=== PATIENT | male | born 1960 | race Hispanic/Latino ===

== ENCOUNTER 2017-06-24 15:47 | Observation (INO) | payer OTHER ==
[~2017-06-24] VITALS: Ht 172.7 cm; Wt 63.5 kg
[2017-06-24] VITALS (10 sets, daily range): BP systolic 109–139; BP diastolic 61–82
--- NOTE | 2017-06-24 03:22 | Pre Op History & Physical ---
ADDENDUM TO PREOPERATIVE HISTORY AND PHYSICAL This gentleman has a right supraglottic mass. He was scheduled for endoscopy and biopsy about 2 weeks ago. The patient came for preop but postponed his surgery against medical advice. The patient is having a similar procedure for panendoscopy, microlaryngoscopy, biopsy and possible tracheostomy. The risks and benefit have been explained to the patient as before. His medical condition has not changed except the only difference is that it is 2 weeks further along with his tumor. Job#: [id number]
--- NOTE | 2017-06-24 03:24 | Pre Op History & Physical ---
DATE OF SURGERY: June 24, 2017 CHIEF COMPLAINT: Right supraglottic mass and hoarseness. HISTORY OF PRESENT ILLNESS: This 57 years old male has right-sided throat pain for about 3 months. The patient claimed that the pain is constant. He lost about 10 pounds over the past 3 months. He denies any dysphagia, odynophagia, or shortness of breath. The patient has hoarseness. The patient smokes about half pack a day and is a nondrinker. A CT scan of the neck showed that patient has a 4 cm ill-defined right supraglottic mass, highly suspicious for squamous cell carcinoma. REVIEW OF SYSTEMS: No recent cardiovascular, respiratory, or GI problem. PAST MEDICAL HISTORY: Patient has no significant medical problem. PAST SURGICAL HISTORY: The patient has no previous surgery. ALLERGIES: HE HAS NO KNOWN ALLERGY TO MEDICATION. MEDICATIONS: He is on Soma and hydrocodone for his back problem. SOCIAL HISTORY: He smokes half a pack a day, is a nondrinker. FAMILY HISTORY: Noncontributory. PHYSICAL EXAMINATION VITAL SIGNS: Patient's vital signs were within normal limits. EARS: Exam shows normal tympanic membranes bilaterally. NASAL: Exam shows diminished nasal septum on the right side about 40%. THROAT: Oropharynx and oral cavity show 2+ tonsils bilaterally with Mallampati level 2. Nasal endoscopy showed that patient has right AE fold mass blocking the right side. The right vocal fold was not mobile, the left vocal fold was mobile. NECK: No lymph node or thyroid palpable. CHEST: Good air entry bilaterally. CARDIOVASCULAR: S1, S2. No murmur noted. IMPRESSION: Mr. Elizabeth has a right supraglottic mass with immobile vocal fold, most likely malignancy. The suggested treatment is panendoscopy, biopsy, possible tracheostomy, and other necessary procedure. The complication of procedure includes, but not limited to bleeding, infection, perforation of esophagus, pneumomediastinum, mediastinitis, airway compromise, and persistent recurrence of the problem. The alternative would be continued observation, continued antibiotic therapy, topical nasal steroid therapy, systemic steroid therapy, and repeat flexible laryngoscopic exam and biopsy in the office setting. The patient has elected to undergo the surgical procedure. Job#: [id number] [facility]
[~2017-06-24 15:47] MED LIST: DEXAMETHASONE SOD PHOS 10 MG/1 ML VIAL ONE; HYDROCODON-ACE1 EAC9 PO; LIDOCAINE 1% W/EPINEPHRINE 20 ML VIAL ONE; MORPHINE SULFATE 2 MG/ML SYR ONE; OXYMETAZOLINE HCL 0.05% NAS 1 SPRAY BTL ONE; SOMA350 MG PO
[2017-06-24] MEDS ORDERED: PROMETHAZINE 25MG/SOD CHL 0.9% 50 ML IV PRN (16:15)
--- NOTE | 2017-06-24 16:20 | Operative Report ---
DATE OF PROCEDURE: June 24, 2017 CHIEF COMPLAINT: Right supraglottic mass. POSTOPERATIVE DIAGNOSIS: Right supraglottic mass. OPERATIVE PROCEDURES: Direct laryngoscopy, rigid esophagoscopy, rigid bronchoscopy, microlaryngoscopy, biopsy of the right tongue base, biopsy of right supraglottic mass, and tracheostomy. ANESTHESIA: Dr. Overton. INDICATIONS: This 56-year-old male has history of a sore throat for a number of months. On examination in the office, the patient was noted to have a supraglottic mass. The patient is a smoker and drinker. CT scan of the neck showed the patient has a 4-cm supraglottic mass. It was decided that panendoscopy, microlaryngoscopy, biopsy, possible tracheostomy and other necessary procedures would be beneficial for him. Patient was taken to the operating room and put under general anesthesia. Intubation was difficult because of the large size of the mass and the airway was deemed compromised, even though the intubation was successful. It was worried that when the patient was extubated he might have a problem. Because of the potential of airway problem, tracheostomy proceeded prior to the panendoscopy and biopsy. The tracheostomy was performed. An incision was marked out about 2 fingerbreadths from the sternal notch. The area was injected with 1% Xylocaine with 1:100,000 epinephrine for hemostasis. Dissection was carried down to the subplatysmal plane. A superior and inferior flap was elevated. Strap muscle was identified, and this was . The cricoid was identified, and this was retracted superiorly. The 3rd tracheal ring was identified. The thyroid gland was noted to be superior to the 3rd tracheal ring. The 3rd tracheal ring was resected. The tracheostomy site was dilated with the tracheal dilator. A size 8 tracheostomy tube was inserted without any problem. A Shiley tracheostomy tube was used. The airway circuit was hooked up to the tracheostomy. The platysma flap was advanced in the midline and closed using 3-0 silk suture in interrupted fashion. The tracheostomy tube was sutured in place in all 4 quadrants. A tracheal tie was applied. Panendoscopy was done. The patient was repositioned. The esophagoscopy was performed. Esophagoscope was passed through the cricopharyngeus muscle. Esophagus was examined to about 25 cm from the incisor. No abnormality was noted. The esophagoscope was retrieved. The rigid bronchoscopy was performed. A size 4 bronchoscope with Mccarthy true was used. The bronchoscope was passed with difficulty through the mass into the larynx. The true vocal fold on the left side was normal. The right side was blocked by the tumor. No obvious subglottic lesion was noted. No lesion was noted in the trachea. The direct laryngoscopy was performed. Using the Ade laryngoscope, the oropharynx and oral cavity were examined. No abnormality was noted. Increased lymphoid tissue was noted in the right tongue base. The right tongue base was biopsied and sent for permanent section. The larynx was examined. A large supraglottic mass was noted endolaryngeal on the right side. This was biopsied using the cup forceps. Microscope was brought in place. Because of the large size of the mass, the vocal folds were not able to be identified clearly. The lesion in the frozen section was done on the supraglottic mass. It was returned as squamous cell carcinoma. The patient tolerated the above procedure with minimal blood loss. He was given 1 gram of Ancef intraoperatively and 20 mg of Decadron. Patient was transferred to the recovery room in stable condition. Job#: [id number]
[2017-06-24] MEDS ORDERED: HYDROMORPHONE 1MG/1ML INJ IV PRN (16:30)
[2017-06-24] MEDS ORDERED: SEVOFLURANE INHAL SOLN 250 ML PEN BTL ONE (17:28)
[2017-06-24] MEDS ORDERED: ROCURONIUM BROMIDE 10 MG/ML 5ML VIAL ONE (17:28)
[2017-06-24] MEDS ORDERED: PROPOFOL IV EMULSION 10 MG/ML 20 ML VIAL ONE (17:28)
[2017-06-24] MEDS ORDERED: SUCCINYLCHOLINE 200 MG/10 ML SYR ONE (17:28)
[2017-06-24] MEDS ORDERED: KETOROLAC TROMETHAMINE 30 MG/ML VIAL ONE (17:28)
[2017-06-24] MEDS ORDERED: ACETAMINOPHEN 1000 MG/100 ML IV ONE (17:28)
[2017-06-24] MEDS ORDERED: DEXAMETHASONE SOD PHOS INJ 4 MG/ML VIAL ONE (17:28)
[2017-06-24] MEDS ORDERED: CEFAZOLIN SOD 1 GM VIAL ONE (17:28)
[2017-06-24] MEDS ORDERED: LIDOCAINE HCL 2% LOCAL INJ 5 ML SDV VIAL INJ ONE (17:28)
[2017-06-24] MEDS ORDERED: ONDANSETRON HCL INJ 2 MG/ML VIAL ONE (17:28)
[2017-06-24] MEDS ORDERED: MIDAZOLAM HCL 2 MG/2 ML VIAL ONE (17:38)
[2017-06-24] MEDS ORDERED: FENTANYL CITRATE/PF 100MCG/2 ML INJ ONE (17:38)
[2017-06-24] MEDS: HYDROMORPHONE 1MG/1ML INJ IV PRN ×2 (18:25→22:07)
[2017-06-24] MEDS: ACETAMINOPHEN/CODEINE 300MG - 30MG TAB PO PRN (20:00)
--- NOTE | 2017-06-24 21:53 | Consultation ---
DATE OF CONSULTATION: June 24, 2017 PULMONARY AND CRITICAL CARE CONSULT REFERRING PHYSICIAN: Dr. Ajit Sosa REASON FOR REFERRAL: Postoperative state, ENT surgery. Mr. Elizabeth is a pleasant 56-year-old gentleman with postoperative state. Patient has been having right-sided throat pain for about 3 months. Pain has been constant. He lost about 10 lbs over that timeframe. Patient is having hoarseness as well. He smokes, but he quit drinking a long time ago. Outside CAT scan showed a 4-cm ill-defined right supraglottic mass. He elects for surgery. During surgery, it was noted that intubation was slightly difficult, so tracheostomy was placed. However, tracheostomy was without difficulty. Patient has repeat bronchoscopy performed. There was some difficulty going past the mass into the larynx. A true vocal fold on the left was normal. However, the right side was blocked by the tumor. No obvious subglottic lesion was noted. No lesion was noted in the trachea. There was some increased lymphoid tissue at the right tongue base. Biopsies were performed. Preliminary frozen section shows squamous cell carcinoma. Minimal blood loss resulted. He was sent to the ICU for further care. PAST MEDICAL HISTORY: None. MEDICATIONS: Patient is on outpatient Soma and [place] 10 and 225 mg among medications. ALLERGIES: NO KNOWN DRUG ALLERGIES. SOCIAL HISTORY: No drugs, no drinking. Patient smokes 1 pack a day. 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 Patient has family around. FAMILY HISTORY: Noncontributory. REVIEW OF SYSTEMS: Cannot get as he is not talking due to new tracheostomy. OBJECTIVE VITALS: Afebrile. Vital signs noted per electronic record. GENERAL: No acute distress. Alert and calm in bed now. HEENT: Normocephalic, atraumatic. NECK: Supple. Tracheostomy in place. Mild oozing from inside trach tube it appears. Mostly with good hemostasis. PULMONARY: Bilateral air entry is good. Limited but clear. CARDIOVASCULAR: S1/S2. No murmurs, rubs or gallops. ABDOMEN: Soft, nontender. EXTREMITIES: No clubbing, no cyanosis, no edema. INTEGUMENT: No rash or purpura. LABS: Outside labs were reviewed. Albumin was 4.0. Creatinine was normal. IMPRESSIONS AND PLAN 1. Postoperative state, status post tracheostomy. 2. Postoperative state, status post biopsies of right tongue base and right supraglottic mass. 3. Supraglottic mass, frozen section squamous cell carcinoma. 4. Active smoker. 5. Chronic pain due to back problems. Patient will have close followup in the ICU after procedure. Continue local tracheostomy care. Follow up for bleeding. Speech therapy evaluation for dysphagia and dysphonia in the morning. Follow up on the biopsy report. Patient expected for future radiation chemotherapy most likely, but this can be arranged with Dr. Sosa. I would like to thank Dr. Sosa for the opportunity to participate in the care of Mr. Elizabeth. Please do not hesitate to contact me if I can help you in anyway. Job#: [id number] CQ
[2017-06-24] MEDS: CEFAZOLIN SOD 1 GM VIAL IV SCH (22:06)
[2017-06-24] MEDS: LACTATED RINGER'S 1,000 ML INJ SCH (22:06)
[2017-06-24] MEDS: ONDANSETRON HCL INJ 2 MG/ML VIAL IV PRN (23:59)
[2017-06-25] VITALS (25 sets, daily range): BP systolic 103–135; BP diastolic 64–97
[2017-06-25] MEDS: HYDROMORPHONE 1MG/1ML INJ IV PRN ×3 (02:01→19:33)
[2017-06-25] MEDS: ACETAMINOPHEN/CODEINE 300MG - 30MG TAB PO PRN ×6 (04:00→21:22)
[2017-06-25] MEDS: ONDANSETRON HCL INJ 2 MG/ML VIAL IV PRN ×2 (05:54→19:33)
[2017-06-25 06:01] LABS: BASOPHILS % 0.3 % (0.0-1.0); EOSINOPHILS # (AUTO) 0.1 (0.0-0.4); EOSINOPHILS % 0.9 % (0.0-6.0); HEMOGLOBIN 12.5 g/dL (14.0-18.0); LYMPHOCYTES # (AUTO) 1.7 (1.0-3.2); LYMPHOCYTES % 22.2 % (18.0-39.1); MEAN CORPUSCULAR HEMOGLOBIN 28.6 pg (28-32); MEAN CORPUSCULAR HGB CONC 32.9 g/dL (31-35); MONOCYTES # (AUTO) 0.7 (0.2-0.8); MONOCYTES % 8.4 % (4.4-11.3); NEUTROPHILS # (AUTO) 5.3 (2.1-6.9); NEUTROPHILS % 67.9 % (38.7-80.0); PLATELET COUNT 182 x10e3/uL (140-360); RED BLOOD COUNT 4.37 x10e6/uL (4.3-5.7); RED CELL DISTRIBUTION WIDTH 12.4 % (11.7-14.4)
[2017-06-25 06:22] LABS: ALANINE AMINOTRANSFERASE 9 IU/L (0-55); ALKALINE PHOSPHATASE 79 IU/L (40-150); ANION GAP 12.2 mmol/L (8-16); BLOOD UREA NITROGEN 10 mg/dL (7-26); BUN/CREATININE RATIO 14 (6-25); CALCIUM 8.6 mg/dL (8.4-10.2); CARBON DIOXIDE 26 mmol/L (22-29); CHLORIDE 103 mmol/L (98-107); CREATININE, SERUM 0.71 mg/dL (0.72-1.25); EST GLOMERULAR FILTRATION RATE > 60 ML/MIN (60-); GLUCOSE 102 mg/dL (74-118); POTASSIUM 4.2 mmol/L (3.5-5.1); SODIUM 137 mmol/L (136-145)
[2017-06-25] MEDS: CEFAZOLIN SOD 1 GM VIAL IV SCH (08:35)
[2017-06-25] MEDS: NICOTINE 21 MG/EA PATCH TOP SCH (08:35)
--- NOTE | 2017-06-25 12:59 | Progress Note ---
DATE: June 25, 2017 PULMONARY MEDICINE PROGRESS NOTE SUBJECTIVE: Mr. Elizabeth was seen and examined at bedside. He continues to do well. Blood oozing from around the trach has decreased over the last day. The patient is grossly able to eat as per the nurse who is assisting with giving him medicines and small amounts of feeds. The patient is without any complication overnight. He still has not walked yet. REVIEW OF SYSTEMS: No ability to get reliably as he is not talking. OBJECTIVE VITALS: Afebrile. Vital signs noted per electronic record. GENERAL: No acute distress. Alert and calm in bed. Tracheostomy in place, some blood around. HEENT: Normocephalic, atraumatic. NECK: Supple. Throat midline. Tracheostomy in place. CARDIOVASCULAR: S1 and S2. No murmurs, rubs or gallops. PULMONARY: Good air entry, clear. ABDOMEN: Soft, nontender. EXTREMITIES: No clubbing, no cyanosis, no edema. INTEGUMENT: No rash. No purpura. LABS: 4.2 potassium, 10 BUN 0.7 creatinine, 7.7 white count, 38 hematocrit, 182 platelets. IMPRESSION AND PLAN 1. Postoperative state, status post tracheostomy. 2. Paraglottic and supraglottic mass, preliminary results consistent with squamous cell carcinoma. 3. Active smoker. 4. Dysphonia. Continue current therapy at this time. The patient will be allowed to go home. Will request suction equipment and maintenance of tracheostomy equipment for home use. The patient had clearance for home health evaluation. Additionally, speech therapy can be done there. Continue escalation of diet. The patient will need adjusted and modified diet with the tracheostomy in place. Possible and likely discharge today. Follow up the blood output, but it is going down well. Job#: [id number]
--- NOTE | 2017-06-25 15:04 | Progress Note ---
DATE: June 25, 2017 This 56-year-old gentleman underwent panendoscopy, microlaryngoscopy and biopsy along with tracheostomy because of potential airway compromise yesterday. The patient was admitted to the ICU for observation. He has had an uneventful postoperative course. The patient has no problem at this point. The patient does complain of still having soreness in his throat. He has not been coughing up blood. There is no active blood come out from the trach site. The patient was seen by Dr. Brady yesterday for his medical management. The speech pathologist did not have a chance to see the patient yet in order to provide him with trach teaching. On examination, the patient is in no apparent distress. The patient was seen with his care nurse. The patient has been eating. No abnormalities of the oropharynx or oral cavity. The trach site is clean. The patient's tracheostomy cuff has been deflated. I attempted to teach him how to talk with covering the trach. The patient is not very successful at this point. His airway seems to be blocked when the trach lumen was covered. The patient's condition was discussed with him regarding the surgery and regarding the positive diagnosis of the biopsy. The plan has been discussed with the patient regarding treatment options. He will come back to my office in about 2 days, and we will discuss the treatment options. The patient's diet is doing well. He will continue to advance his diet. He has no aspiration when he eats. The patient is still waiting at the time of being seen this morning at about 7:30 for the speech pathologist for trach teaching. After that, the patient can be discharged home. I have also instructed the speech pathologist to give the patient a Shiley tracheostomy tube #8 to go home with. The patient will be followed in my office in 2 days' time. Job#: [id number]
[2017-06-25] MEDS: LACTATED RINGER'S 1,000 ML INJ SCH (21:49)
[2017-06-26] VITALS (8 sets, daily range): BP systolic 113–142; BP diastolic 60–79
[2017-06-26] MEDS: ACETAMINOPHEN/CODEINE 300MG - 30MG TAB PO PRN ×4 (02:35→19:29)
[2017-06-26 06:58] LABS: BASOPHILS % 0.2 % (0.0-1.0); EOSINOPHILS # (AUTO) 0.1 (0.0-0.4); HEMATOCRIT 37.8 % (38.2-49.6); HEMOGLOBIN 12.7 g/dL (14.0-18.0); LYMPHOCYTES # (AUTO) 1.1 (1.0-3.2); LYMPHOCYTES % 10.6 % (18.0-39.1); MEAN CORPUSCULAR HEMOGLOBIN 28.8 pg (28-32); MEAN CORPUSCULAR HGB CONC 33.6 g/dL (31-35); MEAN CORPUSCULAR VOLUME 85.7 fL (81-99); MONOCYTES # (AUTO) 0.6 (0.2-0.8); MONOCYTES % 6.1 % (4.4-11.3); NEUTROPHILS # (AUTO) 8.1 (2.1-6.9); NEUTROPHILS % 81.8 % (38.7-80.0); PLATELET COUNT 186 x10e3/uL (140-360); RED BLOOD COUNT 4.41 x10e6/uL (4.3-5.7); RED CELL DISTRIBUTION WIDTH 11.9 % (11.7-14.4)
[2017-06-26 07:21] LABS: BLOOD UREA NITROGEN 13 mg/dL (7-26); BUN/CREATININE RATIO 18 (6-25); CALCIUM 8.6 mg/dL (8.4-10.2); CARBON DIOXIDE 25 mmol/L (22-29); CHLORIDE 100 mmol/L (98-107); CREATININE, SERUM 0.74 mg/dL (0.72-1.25); EST GLOMERULAR FILTRATION RATE > 60 ML/MIN (60-); GLUCOSE 74 mg/dL (74-118); SODIUM 135 mmol/L (136-145)
[2017-06-26] MEDS: NICOTINE 21 MG/EA PATCH TOP SCH (10:05)
--- NOTE | 2017-06-26 13:27 | Progress Note ---
DATE: June 26, 2017 PULMONARY MEDICINE PROGRESS NOTE SUBJECTIVE: Mr. Elizabeth was seen and examined at bedside. He continues to have steady progress. Patient with less bloody secretions from tracheostomy. The insurance uses an intermediary to coordinate home DME and care supplies. Therefore, the patient is still being evaluated in the hospital due to this reason. The patient's intermediary has now put us through directly to the equipment company, and we are talking to [employer] company about more specifics regarding supplies now. The patient is able to walk. On room air, he is having 95% saturation but currently on tracheostomy collar. REVIEW OF SYSTEMS: No bleeding, no headache. OBJECTIVE VITALS: Afebrile. Vital signs noted per electronic record. GENERAL: No acute distress. Alert and calm. HEENT: Normocephalic, atraumatic. NECK: Supple. Throat midline. Tracheostomy in place. LUNGS: Bilateral air entry, a few rhonchi. CARDIOVASCULAR: S1 and S2. No murmurs, rubs or gallops. ABDOMEN: Soft, nontender. EXTREMITIES: No clubbing, no cyanosis. There is no edema. INTEGUMENT: No rash. No purpura. IMPRESSION AND PLAN 1. Postoperative state, status post tracheostomy and mass biopsy. 2. Paraglottic and supraglottic mass, preliminary squamous cell cancer. 3. Active smoker. 4. Mild hemoptysis, expected post procedure, resolving well. We consulted the [employer] and now are working directly with the [employer]. Will continue to get tracheostomy supplies. The patient will likely go home today. We will follow along closely. Continue suctioning. Continue education. Continue to give humidification. Job#: [id number]
[2017-06-26] MEDS: ONDANSETRON HCL INJ 2 MG/ML VIAL IV PRN ×2 (15:11→23:29)
[2017-06-26] MEDS: HYDROMORPHONE 1MG/1ML INJ IV PRN ×2 (15:12→23:28)
[2017-06-26] MEDS: LACTATED RINGER'S 1,000 ML INJ SCH (21:38)
[2017-06-26] MEDS ORDERED: ACETAMINOPHEN 325 MG TAB PO PRN (23:45)
[2017-06-27] VITALS: BP 126/74
[2017-06-27 00:39] VITALS: BP 126/74
[2017-06-27 04:00] VITALS: BP 115/65
[2017-06-27] MEDS: ACETAMINOPHEN/CODEINE 300MG - 30MG TAB PO PRN ×3 (05:03→13:34)
[2017-06-27] MEDS: HYDROMORPHONE 1MG/1ML INJ IV PRN ×2 (07:37→11:26)
[2017-06-27] MEDS: ONDANSETRON HCL INJ 2 MG/ML VIAL IV PRN (07:37)
[2017-06-27 08:05] VITALS: BP 114/63
[2017-06-27] MEDS: NICOTINE 21 MG/EA PATCH TOP SCH (08:42)
[2017-06-27 09:01] VITALS: BP 114/63
--- NOTE | 2017-06-27 12:29 | Progress Note ---
DATE: June 27, 2017 PULMONARY MEDICINE PROGRESS NOTE SUBJECTIVE: Mr. Elizabeth was seen and examined at bedside. [employer] is the intermediary for jellyfish, and they finally gave approval yesterday afternoon for tracheostomy care supplies. Therefore, we talked to [facility], and they were able to start processing their order after they got the authorization. Today patient is scheduled for delivery of products. There is less and less blood being expectorated via tracheostomy. REVIEW OF SYSTEMS: No headaches, no bleeding. OBJECTIVE VITAL SIGNS: Afebrile. Vital signs noted per electronic record. GENERALLY: No acute distress, alert and calm. HEENT: Normocephalic, atraumatic. NECK: Supple. Throat midline. Tracheostomy in place. CARDIOVASCULAR: S1 and S2. No murmurs, rubs or gallops. LUNGS: Bilateral air entry, a few rhonchi. ABDOMEN: Soft, nontender. EXTREMITIES: No clubbing, no cyanosis, no edema. INTEGUMENT: No rash. No purpura. IMPRESSION AND PLAN 1. Status post tracheostomy. 2. Supraglottic and paraglottic mass, apparent squamous cell carcinoma. 3. Chronic smoker. 4. Tracheal oozing of blood, resolved. Follow up closely. Continue to talk to insurance and to the equipment company for supplies. These will be delivered today. We have spoken to Speech Therapy to finalize any followups they have on training and assessments. Patient will be allowed for discharge later on today. Will follow up closely. Job#: [id number] [facility]
--- NOTE | 2017-09-16 17:17 | Discharge Summary ---
CHIEF COMPLAINT: Right supraglottic mass and hoarseness. HISTORY OF PRESENT ILLNESS: This 56-year-old male has right-sided throat pain for about 3 months. The patient claimed that the pain is constant. Patient has lost about 10 pounds over the past 3 months. He denies any dysphagia, odynophagia or shortness of breath. The patient does have hoarseness. The patient smokes about a pack a day and is a nondrinker. A CT scan of the neck showed the patient has a 4 cm ill-defined right supraglottic mass suspicious for squamous cell carcinoma. The patient initially was advised to have a panendoscopy and biopsy a few weeks prior to the date of procedure. However, the patient has postponed his surgery for a number of weeks, claiming personal reasons. SYSTEM REVIEW: Showed no recent cardiovascular, respiratory or GI problem. PAST MEDICAL HISTORY: Patient has no significant medical problem. PAST SURGICAL HISTORY: The patient has no previous surgery. ALLERGIES: HE HAS NO KNOWN ALLERGY TO MEDICATION. MEDICATION: Per medicine list. SOCIAL HISTORY: He smokes a half a pack a day and is a nondrinker. The patient does use a lot of pain medication for his back. Patient also is on quite a number of Soma per day. FAMILY HISTORY: Noncontributory. PHYSICAL EXAMINATION: VITAL SIGNS: Were within normal limits. EAR EXAM: Showed normal tympanic membranes bilaterally. NASAL EXAM: Showed the nasal septum with a spur to the right side. OROPHARYNX AND ORAL CAVITY: Showed 2+ tonsils bilaterally with Mallampati level 2. Nasal endoscopy showed the patient has a mass in the right AE fold blocking the airway. There are immobile vocal folds on the right. Left was mobile. CHEST EXAM: Showed good air entry bilaterally. CARDIOVASCULAR EXAM: Showed S1 and S2. No murmur noted. NECK EXAM: Showed no lymph node or thyroid was palpable. HOSPITAL COURSE: Mr. Elizabeth was admitted to the hospital and underwent a panendoscopy, biopsy and also, because of the airway problem, a tracheostomy. The patient's biopsy returned as squamous cell carcinoma. He was kept in the hospital to give him trachea care and trachea instruction. He was also kept in the hospital for social service to set up appropriate equipment for the patient after he gets home. He was consulted to Dr. Brady during his hospital stay. After all the equipment was set up and discussions with his treatment were made, the patient was discharged home on June 27, 2017, and patient will be followed up in my office in about a week's time and his medical treatment will be initiated. At the time of discharge, the patient was leaning towards chemotherapy and radiation for his condition. JOYA HERNANDEZ MD Job#: [id number] [facility]
== END 2017-06-27 13:43 | disposition home health service (06) ==
LOC: OR 15:47 → ICU 15:48 → MED/SURG 06-25 20:03
PROVIDERS: ADMIT Otolaryngology Otolaryngology/Facial Plastic Surgery; ATTEND Otolaryngology Otolaryngology/Facial Plastic Surgery
PROC: 0CBM8ZX Excision of Pharynx, Via Natural or Artificial Opening Endoscopic, Diagnostic (ICD-10-PCS; 2017-06-24)
PROC: 0B110F4 Bypass Trachea to Cutaneous with Tracheostomy Device, Open Approach (ICD-10-PCS; principal; 2017-06-24 09:30)
PROC: 0CBR8ZX Excision of Epiglottis, Via Natural or Artificial Opening Endoscopic, Diagnostic (ICD-10-PCS; 2017-06-24 09:30)
DX: C32.1 Malignant neoplasm of supraglottis (principal); F17.210 Nicotine dependence, cigarettes, uncomplicated; G89.29 Other chronic pain; R49.0 Dysphonia; R04.2 Hemoptysis
CPT/HCPCS: 31535; 31600; 36415 ×2; 80048; 80053; 82948; 85025 ×2; 88305; 88331; 88342; 92507; 92524; G0378 ×4; J0690 ×2; J1100; J1170 ×4; J1885; J2001; J2250; J2270; J2405 ×4; J2550; J7120